=== PATIENT | female | born 1975 | race Caucasian/White ===

== ENCOUNTER 2017-12-19 14:54 | Emergency (ER) | payer SELFPAY ==
[~2017-12-19] VITALS: Ht 160 cm; Wt 59.0 kg
[2017-12-19] MEDS ORDERED: IBUPROFEN 600MG TABLET PO ONE (18:15)
[2017-12-19] MEDS ORDERED: HYDROCODONE/ACETAMINOPHEN 5/325MG TABLET PO STA (19:39)
[2017-12-19 21:55] VITALS: BP 131/85
== END 2017-12-19 22:09 | disposition home or self-care (01) ==
LOC: ER 15:08
DX: S80.01XA Contusion of right knee, initial encounter (principal); W01.0XXA Fall on same level from slipping, tripping and stumbling without subsequent striking against object, initial encounter; Y93.89 Activity, other specified; Y92.89 Other specified places as the place of occurrence of the external cause
CPT/HCPCS: 73560; 81025; 99284; L1830